=== PATIENT | male | born 1940 | race Caucasian/White ===

== ENCOUNTER 2017-11-16 07:27 | Inpatient (IN) | payer OTHER ==
[2017-11-16] MEDS: SOD CHLORIDE 0.9% 1,000 ML IV ×3 (08:45→17:27)
[2017-11-16] MEDS: LORAZEPAM 2 MG INJ IV ×3 (08:45→23:07)
[2017-11-16] MEDS: ONDANSETRON 4 MG INJ IV (08:45)
[2017-11-16 08:46] LABS: ADD MAN DIFF? NO
[2017-11-16 08:52] LABS: ABNORMAL IP MESSAGE 1; BASOPHILS % 0.1 % (0.0-2.0); HEMATOCRIT 34.2 % (42.0-52.0); HEMOGLOBIN 11.6 g/dl (14.0-18.0); LYMPHOCYTES # 0.4 10^3/ul (0.8-2.9); LYMPHOCYTES % 4.7 % (15.0-51.0); MEAN CORPUSCULAR HGB CONC 33.9 g/dl (32.0-37.0); MEAN CORPUSCULAR VOLUME 94.2 fl (82.0-101.0); MEAN PLATELET VOLUME 9.8 fl (7.4-10.4); MONOCYTE # 0.3 10^3/ul (0.3-0.9); MONOCYTES % 3.4 % (0.0-11.0); NEUTROPHIL # 7.5 10^3/ul (1.6-7.5); NEUTROPHILS % 91.6 % (39.0-77.0); PLATELET COUNT 156 10^3/UL (140-415); POSITIVE DIFF @See below; RED BLOOD COUNT 3.63 10^6/ul (4.70-6.10); RED CELL DISTRIBUTION WIDTH 14.3 % (11.5-14.5)
[2017-11-16 08:52] LABS: WHITE BLOOD COUNT 8.2 10^3/ul (4.8-10.8)
[2017-11-16 09:10] LABS: INR 0.97
[2017-11-16 09:12] LABS: ALANINE AMINOTRANSFERASE 104 IU/L (13-69); ALBUMIN/GLOBULIN RATIO 1.61; ALKALINE PHOSPHATASE 107 IU/L (42-121); ANION GAP 37 (8-16); ASPARTATE AMINO TRANSFERASE 155 IU/L (15-46); BILIRUBIN,INDIRECT 1.4 mg/dl (0-1.1); BILIRUBIN,TOTAL 1.4 mg/dl (0.2-1.3); BLOOD UREA NITROGEN 34 mg/dl (7-20); CALCIUM 9.3 mg/dl (8.4-10.2); CARBON DIOXIDE 14 mmol/L (21-31); CHLORIDE 103 mmol/L (97-110); CREATININE 1.31 mg/dl (0.61-1.24); GLUCOSE 113 mg/dl (70-220); LIPASE 158 U/L (23-300); POTASSIUM 4.5 mmol/L (3.5-5.1); SODIUM 149 mmol/L (135-144); TOTAL PROTEIN 8.1 g/dl (6.1-8.1)
[2017-11-16 09:22] LABS: TROPONIN-I 0.064 ng/ml (0.00-0.12)
[2017-11-16] MEDS: METOPROLOL (XL) 25 MG TAB PO (12:29)
[2017-11-16] MEDS ORDERED: ONDANSETRON 4 MG INJ IV ×2 (16:30→17:30)
[2017-11-16] MEDS ORDERED: ACETAMINOPHEN 325 MG TAB PO (16:30)
[2017-11-16] MEDS ORDERED: NACL 0.9% 3 ML SYG IV (17:30)
[2017-11-16] MEDS ORDERED: MAGNESIUM HYDROXIDE 30ML CUP PO (17:30)
[2017-11-16] MEDS: MULTIVITAMINS 10 ML, THIAMINE 100 MG, FOLIC ACID 1 MG in SOD CHLORIDE 0.9% 1,000 ML IVPB (22:55)
[2017-11-16] MEDS: CHLORDIAZEPOXIDE 25 MG CAP PO (22:55)
[2017-11-16] MEDS: PANTOPRAZOLE 40 MG INJ IV (22:55)
[2017-11-17 06:01] LABS: ADD MAN DIFF? NO
[2017-11-17 06:07] LABS: WHITE BLOOD COUNT 5.2 10^3/ul (4.8-10.8)
[2017-11-17 06:07] LABS: ABNORMAL IP MESSAGE 1; BASOPHILS % 0.4 % (0.0-2.0); EOSINOPHILS % 0.6 % (0.0-7.0); HEMATOCRIT 28.7 % (42.0-52.0); HEMOGLOBIN 9.7 g/dl (14.0-18.0); LYMPHOCYTES % 18.7 % (15.0-51.0); MEAN CORPUSCULAR HEMOGLOBIN 32.2 pg (29.0-33.0); MEAN CORPUSCULAR HGB CONC 33.8 g/dl (32.0-37.0); MEAN CORPUSCULAR VOLUME 95.3 fl (82.0-101.0); MEAN PLATELET VOLUME 9.9 fl (7.4-10.4); MONOCYTE # 0.4 10^3/ul (0.3-0.9); MONOCYTES % 8.1 % (0.0-11.0); NEUTROPHIL # 3.7 10^3/ul (1.6-7.5); NEUTROPHILS % 71.8 % (39.0-77.0); PLATELET COUNT 96 10^3/UL (140-415); POSITIVE DIFF @See below; RED BLOOD COUNT 3.01 10^6/ul (4.70-6.10); RED CELL DISTRIBUTION WIDTH 14.3 % (11.5-14.5)
[2017-11-17 06:32] LABS: ALANINE AMINOTRANSFERASE 74 IU/L (13-69); ALBUMIN 3.6 g/dl (3.3-4.9); ALBUMIN/GLOBULIN RATIO 1.38; ALKALINE PHOSPHATASE 76 IU/L (42-121); ANION GAP 17 (8-16); ASPARTATE AMINO TRANSFERASE 91 IU/L (15-46); BLOOD UREA NITROGEN 30 mg/dl (7-20); CALCIUM 8.8 mg/dl (8.4-10.2); CARBON DIOXIDE 21 mmol/L (21-31); CHLORIDE 110 mmol/L (97-110); CREATININE 0.89 mg/dl (0.61-1.24); GLUCOSE 73 mg/dl (70-220); MAGNESIUM 1.7 mg/dl (1.7-2.5); POTASSIUM 3.4 mmol/L (3.5-5.1); SODIUM 145 mmol/L (135-144); TOTAL PROTEIN 6.2 g/dl (6.1-8.1)
[2017-11-17] MEDS: SOD CHLORIDE 0.9% 1,000 ML IV ×3 (06:33→19:53)
[2017-11-17] MEDS: MULTIVITAMINS 10 ML, THIAMINE 100 MG, FOLIC ACID 1 MG in SOD CHLORIDE 0.9% 1,000 ML IVPB (09:00)
[2017-11-17] MEDS: CHLORDIAZEPOXIDE 25 MG CAP PO ×3 (09:00→19:46)
[2017-11-17] MEDS: PANTOPRAZOLE 40 MG INJ IV ×2 (09:00→19:46)
[2017-11-17] MEDS: POTASSIUM CHLORIDE (SR) 10 MEQ TAB PO (12:32)
[2017-11-17 12:33] LABS: CHOLESTEROL 219 mg/dl (100-200)
[2017-11-17 12:33] LABS: CHOL/HDL RATIO 2.7 RATIO; HDL CHOLESTEROL 79 mg/dl (31-75); LDL CHOLESTEROL,CALCULATED 112 mg/dl; TRIGLYCERIDES 142 mg/dl (0-149)
[2017-11-17 12:41] LABS: HEMOGLOBIN A1C 4.7 % (0-5.9)
[2017-11-18] MEDS: SOD CHLORIDE 0.9% 1,000 ML IV ×2 (05:07→19:53)
[2017-11-18 06:08] LABS: ADD MAN DIFF? NO; HAAIG REFLEX REFLEX FILED
[2017-11-18 06:13] LABS: WHITE BLOOD COUNT 4.6 10^3/ul (4.8-10.8)
[2017-11-18 06:13] LABS: ABNORMAL IP MESSAGE 1; BASOPHILS % 0.2 % (0.0-2.0); EOSINOPHILS # 0.1 10^3/ul (0.0-0.5); EOSINOPHILS % 1.7 % (0.0-7.0); HEMATOCRIT 26.8 % (42.0-52.0); HEMOGLOBIN 9.2 g/dl (14.0-18.0); LYMPHOCYTES # 1.1 10^3/ul (0.8-2.9); LYMPHOCYTES % 23.6 % (15.0-51.0); MEAN CORPUSCULAR HEMOGLOBIN 31.9 pg (29.0-33.0); MEAN CORPUSCULAR HGB CONC 34.3 g/dl (32.0-37.0); MEAN CORPUSCULAR VOLUME 93.1 fl (82.0-101.0); MEAN PLATELET VOLUME 10.4 fl (7.4-10.4); MONOCYTE # 0.3 10^3/ul (0.3-0.9); MONOCYTES % 6.6 % (0.0-11.0); NEUTROPHIL # 3.1 10^3/ul (1.6-7.5); NEUTROPHILS % 67.5 % (39.0-77.0); PLATELET COUNT 82 10^3/UL (140-415); POSITIVE DIFF @See below; RED BLOOD COUNT 2.88 10^6/ul (4.70-6.10); RED CELL DISTRIBUTION WIDTH 13.6 % (11.5-14.5)
[2017-11-18 06:46] LABS: ALANINE AMINOTRANSFERASE 62 IU/L (13-69); ALBUMIN 3.1 g/dl (3.3-4.9); ALBUMIN/GLOBULIN RATIO 1.29; ALKALINE PHOSPHATASE 68 IU/L (42-121); ANION GAP 13 (8-16); ASPARTATE AMINO TRANSFERASE 72 IU/L (15-46); BILIRUBIN,INDIRECT 1.5 mg/dl (0-1.1); BILIRUBIN,TOTAL 1.5 mg/dl (0.2-1.3); BLOOD UREA NITROGEN 21 mg/dl (7-20); CALCIUM 8.5 mg/dl (8.4-10.2); CARBON DIOXIDE 22 mmol/L (21-31); CHLORIDE 109 mmol/L (97-110); CREATININE 0.74 mg/dl (0.61-1.24); GLUCOSE 80 mg/dl (70-220); POTASSIUM 3.2 mmol/L (3.5-5.1); SODIUM 141 mmol/L (135-144); TOTAL PROTEIN 5.5 g/dl (6.1-8.1)
[2017-11-18 07:11] LABS: HEPATITIS B SURFACE ANTIGEN NEGATIVE (NEGATIVE)
[2017-11-18 07:15] LABS: MAGNESIUM 1.3 mg/dl (1.7-2.5)
[2017-11-18 07:15] LABS: PHOSPHORUS 2.3 mg/dl (2.5-4.9)
[2017-11-18 07:29] LABS: HEPATITIS B CORE ANTIBODY NEGATIVE (NEGATIVE); HEPATITIS C VIRAL ANTIBODY NEGATIVE (NEGATIVE)
[2017-11-18 08:51] LABS: AMMONIA 21 umol/l (9-30)
[2017-11-18] MEDS: PANTOPRAZOLE 40 MG INJ IV ×2 (09:33→21:16)
[2017-11-18] MEDS: CHLORDIAZEPOXIDE 25 MG CAP PO ×3 (09:33→21:16)
[2017-11-18] MEDS: MULTIVITAMINS 10 ML, THIAMINE 100 MG, FOLIC ACID 1 MG in SOD CHLORIDE 0.9% 1,000 ML IVPB (10:54)
[2017-11-18] MEDS: MAGNESIUM SULFATE 3 GM in DEXTROSE 5% 100 ML IVPB (11:47)
[2017-11-18] MEDS: POTASSIUM PHOSPHATE 15 MM in SOD CHLORIDE 0.9% 250 ML IVPB (13:36)
[2017-11-19 06:13] LABS: ADD MAN DIFF? NO
[2017-11-19 06:16] LABS: WHITE BLOOD COUNT 4.2 10^3/ul (4.8-10.8)
[2017-11-19 06:16] LABS: ABNORMAL IP MESSAGE 1; BASOPHILS % 0.2 % (0.0-2.0); EOSINOPHILS # 0.1 10^3/ul (0.0-0.5); EOSINOPHILS % 2.2 % (0.0-7.0); HEMATOCRIT 25.6 % (42.0-52.0); HEMOGLOBIN 8.8 g/dl (14.0-18.0); LYMPHOCYTES % 22.9 % (15.0-51.0); MEAN CORPUSCULAR HGB CONC 34.4 g/dl (32.0-37.0); MEAN CORPUSCULAR VOLUME 93.1 fl (82.0-101.0); MEAN PLATELET VOLUME 10.2 fl (7.4-10.4); MONOCYTE # 0.3 10^3/ul (0.3-0.9); NEUTROPHIL # 2.8 10^3/ul (1.6-7.5); NEUTROPHILS % 66.5 % (39.0-77.0); PLATELET COUNT 79 10^3/UL (140-415); POSITIVE DIFF @See below; RED BLOOD COUNT 2.75 10^6/ul (4.70-6.10); RED CELL DISTRIBUTION WIDTH 13.6 % (11.5-14.5)
[2017-11-19 06:56] LABS: PHOSPHORUS 2.3 mg/dl (2.5-4.9)
[2017-11-19 06:56] LABS: MAGNESIUM 1.6 mg/dl (1.7-2.5)
[2017-11-19 06:59] LABS: ALANINE AMINOTRANSFERASE 70 IU/L (13-69); ALBUMIN 2.8 g/dl (3.3-4.9); ALBUMIN/GLOBULIN RATIO 1.07; ALKALINE PHOSPHATASE 92 IU/L (42-121); ANION GAP 9 (8-16); ASPARTATE AMINO TRANSFERASE 72 IU/L (15-46); BILIRUBIN,INDIRECT 0.9 mg/dl (0-1.1); BILIRUBIN,TOTAL 0.9 mg/dl (0.2-1.3); BLOOD UREA NITROGEN 15 mg/dl (7-20); CALCIUM 8.5 mg/dl (8.4-10.2); CARBON DIOXIDE 22 mmol/L (21-31); CHLORIDE 112 mmol/L (97-110); CREATININE 0.78 mg/dl (0.61-1.24); GLUCOSE 98 mg/dl (70-220); SODIUM 140 mmol/L (135-144); TOTAL PROTEIN 5.4 g/dl (6.1-8.1)
[2017-11-19] MEDS: MULTIVITAMINS 10 ML, THIAMINE 100 MG, FOLIC ACID 1 MG in SOD CHLORIDE 0.9% 1,000 ML IVPB ×2 (08:54→11:57)
[2017-11-19] MEDS: CHLORDIAZEPOXIDE 25 MG CAP PO ×2 (08:55→13:46)
[2017-11-19] MEDS: PANTOPRAZOLE 40 MG INJ IV ×2 (08:55→20:52)
[2017-11-19] MEDS: SOD CHLORIDE 0.9% 1,000 ML IV (11:53)
[2017-11-19] MEDS: POTASSIUM PHOSPHATE 30 MM in SOD CHLORIDE 0.9% 250 ML IVPB (17:14)
[2017-11-19] MEDS: MAGNESIUM SULFATE 2 GM/50 ML 50 ML IVPB (20:52)
[2017-11-19] MEDS: CHLORDIAZEPOXIDE 5 MG CAP PO (20:53)
[2017-11-20] MEDS: SOD CHLORIDE 0.9% 1,000 ML IV ×3 (02:00→20:53)
[2017-11-20 06:42] LABS: ADD MAN DIFF? NO
[2017-11-20 06:43] LABS: BASOPHILS % 0.5 % (0.0-2.0); EOSINOPHILS # 0.1 10^3/ul (0.0-0.5); EOSINOPHILS % 3.1 % (0.0-7.0); HEMATOCRIT 25.2 % (42.0-52.0); HEMOGLOBIN 8.8 g/dl (14.0-18.0); LYMPHOCYTES % 26.2 % (15.0-51.0); MEAN CORPUSCULAR HEMOGLOBIN 32.4 pg (29.0-33.0); MEAN CORPUSCULAR HGB CONC 34.9 g/dl (32.0-37.0); MEAN CORPUSCULAR VOLUME 92.6 fl (82.0-101.0); MONOCYTE # 0.5 10^3/ul (0.3-0.9); NEUTROPHIL # 2.2 10^3/ul (1.6-7.5); NEUTROPHILS % 57.9 % (39.0-77.0); NUCLEATED RED BLOOD CELLS% 0.5 /100WBC (0.0-0.0); POSITIVE DIFF @See below; RED BLOOD COUNT 2.72 10^6/ul (4.70-6.10); RED CELL DISTRIBUTION WIDTH 13.8 % (11.5-14.5)
[2017-11-20 06:43] LABS: WHITE BLOOD COUNT 3.8 10^3/ul (4.8-10.8)
[2017-11-20 07:12] LABS: PHOSPHORUS 3.8 mg/dl (2.5-4.9)
[2017-11-20 07:12] LABS: MAGNESIUM 1.8 mg/dl (1.7-2.5)
[2017-11-20 07:20] LABS: ALANINE AMINOTRANSFERASE 71 IU/L (13-69); ALBUMIN 2.8 g/dl (3.3-4.9); ALBUMIN/GLOBULIN RATIO 1.07; ALKALINE PHOSPHATASE 75 IU/L (42-121); ANION GAP 12 (8-16); ASPARTATE AMINO TRANSFERASE 70 IU/L (15-46); BILIRUBIN,INDIRECT 0.6 mg/dl (0-1.1); BILIRUBIN,TOTAL 0.6 mg/dl (0.2-1.3); BLOOD UREA NITROGEN 10 mg/dl (7-20); CALCIUM 8.4 mg/dl (8.4-10.2); CARBON DIOXIDE 21 mmol/L (21-31); CHLORIDE 113 mmol/L (97-110); CREATININE 0.72 mg/dl (0.61-1.24); GLUCOSE 99 mg/dl (70-220); POTASSIUM 3.2 mmol/L (3.5-5.1); SODIUM 143 mmol/L (135-144); TOTAL PROTEIN 5.4 g/dl (6.1-8.1)
[2017-11-20] MEDS: PANTOPRAZOLE 40 MG INJ IV ×2 (08:02→20:44)
[2017-11-20] MEDS: CHLORDIAZEPOXIDE 5 MG CAP PO ×3 (08:03→20:44)
[2017-11-20] MEDS: MULTIVITAMINS 10 ML, THIAMINE 100 MG, FOLIC ACID 1 MG in SOD CHLORIDE 0.9% 1,000 ML IVPB ×2 (09:00→13:27)
[2017-11-20 10:33] LABS: MEAN PLATELET VOLUME 10.4 fl (7.4-10.4)
[2017-11-20 10:35] LABS: PLATELET COUNT 112 10^3/UL (140-415)
[2017-11-20] MEDS: DOCUSATE SODIUM 100 MG CAP PO (11:42)
[2017-11-20] MEDS: POTASSIUM CHLORIDE (SR) 20 MEQ TAB PO (12:44)
[2017-11-20 12:58] LABS: OCCULT BLOOD STOOL POSITIVE (NEGATIVE)
[2017-11-20] MEDS ORDERED: BISACODYL (EC) 5 MG TAB PO (13:00)
[2017-11-20 13:02] LABS: IRON 34 ug/dl (35-150)
[2017-11-20 13:11] LABS: % IRON SATURATION 19 % SAT (22-52); TOTAL IRON BINDING CAPACITY 175 ug/dl (241-421)
[2017-11-20] MEDS: MAGNESIUM SULFATE 2 GM/50 ML 50 ML IVPB (14:45)
[2017-11-20] MEDS: LACTULOSE 30ML CUP PO (20:44)
[2017-11-20] MEDS: POLYETHYLENE GLYCOL 17 GM PACKET PO (20:44)
[2017-11-21] MEDS: SOD CHLORIDE 0.9% 1,000 ML IV ×3 (03:31→19:23)
[2017-11-21 06:26] LABS: ADD MAN DIFF? NO
[2017-11-21 06:30] LABS: WHITE BLOOD COUNT 3.5 10^3/ul (4.8-10.8)
[2017-11-21 06:30] LABS: BASOPHILS % 0.6 % (0.0-2.0); EOSINOPHILS # 0.1 10^3/ul (0.0-0.5); EOSINOPHILS % 3.4 % (0.0-7.0); HEMATOCRIT 25.1 % (42.0-52.0); HEMOGLOBIN 8.8 g/dl (14.0-18.0); LYMPHOCYTES % 27.7 % (15.0-51.0); MEAN CORPUSCULAR HGB CONC 35.1 g/dl (32.0-37.0); MEAN PLATELET VOLUME 10.2 fl (7.4-10.4); MONOCYTE # 0.5 10^3/ul (0.3-0.9); MONOCYTES % 13.6 % (0.0-11.0); NEUTROPHIL # 1.9 10^3/ul (1.6-7.5); NEUTROPHILS % 54.4 % (39.0-77.0); PLATELET COUNT 124 10^3/UL (140-415); RED BLOOD COUNT 2.67 10^6/ul (4.70-6.10)
[2017-11-21 07:17] LABS: ALANINE AMINOTRANSFERASE 78 IU/L (13-69); ALBUMIN 2.8 g/dl (3.3-4.9); ALBUMIN/GLOBULIN RATIO 1.07; ALKALINE PHOSPHATASE 75 IU/L (42-121); ANION GAP 14 (8-16); ASPARTATE AMINO TRANSFERASE 77 IU/L (15-46); BILIRUBIN,INDIRECT 0.5 mg/dl (0-1.1); BILIRUBIN,TOTAL 0.5 mg/dl (0.2-1.3); BLOOD UREA NITROGEN 7 mg/dl (7-20); CALCIUM 8.2 mg/dl (8.4-10.2); CARBON DIOXIDE 19 mmol/L (21-31); CHLORIDE 114 mmol/L (97-110); CREATININE 0.73 mg/dl (0.61-1.24); GLUCOSE 86 mg/dl (70-220); POTASSIUM 3.7 mmol/L (3.5-5.1); SODIUM 143 mmol/L (135-144); TOTAL PROTEIN 5.4 g/dl (6.1-8.1)
[2017-11-21 07:55] LABS: PHOSPHORUS 3.2 mg/dl (2.5-4.9)
[2017-11-21 07:55] LABS: MAGNESIUM 1.8 mg/dl (1.7-2.5)
[2017-11-21] MEDS: PANTOPRAZOLE 40 MG INJ IV ×2 (08:20→22:05)
[2017-11-21] MEDS: MULTIVITAMINS 10 ML, THIAMINE 100 MG, FOLIC ACID 1 MG in SOD CHLORIDE 0.9% 1,000 ML IVPB (08:21)
[2017-11-21] MEDS: CHLORDIAZEPOXIDE 5 MG CAP PO ×3 (09:00→22:04)
[2017-11-21] MEDS: POLYETHYLENE GLYCOL 17 GM PACKET PO ×2 (09:00→22:05)
[2017-11-21] MEDS: LACTULOSE 30ML CUP PO ×2 (09:00→22:04)
[2017-11-21] MEDS: FERROUS SULFATE (EC) 325 MG TAB PO ×2 (13:37→22:04)
[2017-11-22 06:13] LABS: ADD MAN DIFF? NO
[2017-11-22 06:19] LABS: WHITE BLOOD COUNT 3.8 10^3/ul (4.8-10.8)
[2017-11-22 06:19] LABS: BASOPHILS % 0.3 % (0.0-2.0); EOSINOPHILS # 0.1 10^3/ul (0.0-0.5); EOSINOPHILS % 2.9 % (0.0-7.0); HEMATOCRIT 27.1 % (42.0-52.0); MEAN CORPUSCULAR HEMOGLOBIN 31.8 pg (29.0-33.0); MEAN CORPUSCULAR HGB CONC 33.2 g/dl (32.0-37.0); MEAN CORPUSCULAR VOLUME 95.8 fl (82.0-101.0); MEAN PLATELET VOLUME 9.9 fl (7.4-10.4); MONOCYTE # 0.7 10^3/ul (0.3-0.9); MONOCYTES % 18.8 % (0.0-11.0); NEUTROPHILS % 51.7 % (39.0-77.0); PLATELET COUNT 182 10^3/UL (140-415); RED BLOOD COUNT 2.83 10^6/ul (4.70-6.10)
[2017-11-22] MEDS: SOD CHLORIDE 0.9% 1,000 ML IV ×3 (06:33→19:53)
[2017-11-22 06:46] LABS: ANION GAP 14 (8-16); BLOOD UREA NITROGEN 8 mg/dl (7-20); CALCIUM 8.3 mg/dl (8.4-10.2); CARBON DIOXIDE 22 mmol/L (21-31); CHLORIDE 112 mmol/L (97-110); GLUCOSE 85 mg/dl (70-220); POTASSIUM 3.9 mmol/L (3.5-5.1); SODIUM 144 mmol/L (135-144)
[2017-11-22] MEDS: CHLORDIAZEPOXIDE 5 MG CAP PO ×3 (08:16→20:50)
[2017-11-22] MEDS: PANTOPRAZOLE 40 MG INJ IV ×2 (08:16→20:50)
[2017-11-22] MEDS: FERROUS SULFATE (EC) 325 MG TAB PO ×2 (08:16→20:50)
[2017-11-22] MEDS: LACTULOSE 30ML CUP PO ×2 (08:16→20:50)
[2017-11-22] MEDS: POLYETHYLENE GLYCOL 17 GM PACKET PO ×2 (08:16→20:50)
[2017-11-22] MEDS: MULTIVITAMINS 10 ML, THIAMINE 100 MG, FOLIC ACID 1 MG in SOD CHLORIDE 0.9% 1,000 ML IVPB (08:17)
[2017-11-23 05:56] LABS: BASOPHILS % 0.2 % (0.0-2.0); EOSINOPHILS # 0.1 10^3/ul (0.0-0.5); EOSINOPHILS % 3.3 % (0.0-7.0); HEMATOCRIT 24.1 % (42.0-52.0); HEMOGLOBIN 8.2 g/dl (14.0-18.0); LYMPHOCYTES # 0.8 10^3/ul (0.8-2.9); LYMPHOCYTES % 19.4 % (15.0-51.0); MEAN CORPUSCULAR HEMOGLOBIN 31.9 pg (29.0-33.0); MEAN CORPUSCULAR VOLUME 93.8 fl (82.0-101.0); MEAN PLATELET VOLUME 9.6 fl (7.4-10.4); MONOCYTES % 22.5 % (0.0-11.0); NEUTROPHIL # 2.3 10^3/ul (1.6-7.5); NEUTROPHILS % 54.4 % (39.0-77.0); PLATELET COUNT 187 10^3/UL (140-415); RED BLOOD COUNT 2.57 10^6/ul (4.70-6.10); RED CELL DISTRIBUTION WIDTH 14.3 % (11.5-14.5)
[2017-11-23 05:56] LABS: WHITE BLOOD COUNT 4.3 10^3/ul (4.8-10.8)
[2017-11-23 05:57] LABS: ADD MAN DIFF? NO
[2017-11-23 06:15] LABS: ANION GAP 12 (8-16); BLOOD UREA NITROGEN 6 mg/dl (7-20); CARBON DIOXIDE 22 mmol/L (21-31); CHLORIDE 112 mmol/L (97-110); GLUCOSE 88 mg/dl (70-220); SODIUM 143 mmol/L (135-144)
[2017-11-23] MEDS: PANTOPRAZOLE 40 MG INJ IV ×2 (08:46→21:11)
[2017-11-23] MEDS: CHLORDIAZEPOXIDE 5 MG CAP PO ×3 (08:46→21:11)
[2017-11-23] MEDS: LACTULOSE 30ML CUP PO ×2 (08:46→21:11)
[2017-11-23] MEDS: FERROUS SULFATE (EC) 325 MG TAB PO ×2 (08:46→21:11)
[2017-11-23] MEDS: POLYETHYLENE GLYCOL 17 GM PACKET PO ×2 (08:49→21:11)
[2017-11-23] MEDS: MULTIVITAMINS 10 ML, THIAMINE 100 MG, FOLIC ACID 1 MG in SOD CHLORIDE 0.9% 1,000 ML IVPB (08:50)
[2017-11-23] MEDS: SOD CHLORIDE 0.9% 1,000 ML IV ×2 (09:13→18:16)
[2017-11-23] MEDS: POTASSIUM CHLORIDE 100 ML IVPB ×2 (11:19→14:39)
[2017-11-23 13:29] LABS: MAGNESIUM 1.2 mg/dl (1.7-2.5)
[2017-11-23] MEDS: MAGNESIUM SULFATE 4 GM/100 ML 100 ML IVPB (18:15)
[2017-11-23] MEDS: ZOLPIDEM 5 MG TAB PO ×2 (22:35→22:37)
[2017-11-24 06:09] LABS: ADD MAN DIFF? NO
[2017-11-24 06:12] LABS: WHITE BLOOD COUNT 3.6 10^3/ul (4.8-10.8)
[2017-11-24 06:12] LABS: BASOPHILS % 0.6 % (0.0-2.0); EOSINOPHILS # 0.1 10^3/ul (0.0-0.5); EOSINOPHILS % 3.6 % (0.0-7.0); HEMATOCRIT 24.4 % (42.0-52.0); HEMOGLOBIN 8.4 g/dl (14.0-18.0); LYMPHOCYTES # 0.8 10^3/ul (0.8-2.9); LYMPHOCYTES % 22.3 % (15.0-51.0); MEAN CORPUSCULAR HEMOGLOBIN 32.4 pg (29.0-33.0); MEAN CORPUSCULAR HGB CONC 34.4 g/dl (32.0-37.0); MEAN CORPUSCULAR VOLUME 94.2 fl (82.0-101.0); MEAN PLATELET VOLUME 9.6 fl (7.4-10.4); MONOCYTES % 26.5 % (0.0-11.0); NEUTROPHIL # 1.7 10^3/ul (1.6-7.5); NEUTROPHILS % 46.7 % (39.0-77.0); PLATELET COUNT 214 10^3/UL (140-415); RED BLOOD COUNT 2.59 10^6/ul (4.70-6.10); RED CELL DISTRIBUTION WIDTH 14.1 % (11.5-14.5)
[2017-11-24 06:40] LABS: ALANINE AMINOTRANSFERASE 64 IU/L (13-69); ALBUMIN 2.7 g/dl (3.3-4.9); ALKALINE PHOSPHATASE 60 IU/L (42-121); ASPARTATE AMINO TRANSFERASE 46 IU/L (15-46); BILIRUBIN,INDIRECT 0.3 mg/dl (0-1.1); BILIRUBIN,TOTAL 0.3 mg/dl (0.2-1.3)
[2017-11-24 06:50] LABS: ANION GAP 13 (8-16); BLOOD UREA NITROGEN 5 mg/dl (7-20); CARBON DIOXIDE 22 mmol/L (21-31); CHLORIDE 112 mmol/L (97-110); CREATININE 0.77 mg/dl (0.61-1.24); GLUCOSE 86 mg/dl (70-220); POTASSIUM 3.3 mmol/L (3.5-5.1); SODIUM 144 mmol/L (135-144)
[2017-11-24 06:54] LABS: MAGNESIUM 1.9 mg/dl (1.7-2.5)
[2017-11-24] MEDS: CHLORDIAZEPOXIDE 5 MG CAP PO ×3 (08:40→20:59)
[2017-11-24] MEDS: FERROUS SULFATE (EC) 325 MG TAB PO ×2 (08:40→20:58)
[2017-11-24] MEDS: PANTOPRAZOLE 40 MG INJ IV ×2 (08:40→20:58)
[2017-11-24] MEDS: LACTULOSE 30ML CUP PO ×2 (08:40→20:58)
[2017-11-24] MEDS: MULTIVITAMINS 10 ML, THIAMINE 100 MG, FOLIC ACID 1 MG in SOD CHLORIDE 0.9% 1,000 ML IVPB (08:41)
[2017-11-24] MEDS: POLYETHYLENE GLYCOL 17 GM PACKET PO ×2 (08:41→20:59)
[2017-11-24] MEDS: SOD CHLORIDE 0.9% 1,000 ML IV ×2 (11:53→18:16)
[2017-11-24] MEDS: POTASSIUM CHLORIDE (SR) 10 MEQ TAB PO (13:49)
[2017-11-25] MEDS: ZOLPIDEM 5 MG TAB PO ×2 (00:21→22:18)
[2017-11-25 08:03] LABS: ADD MAN DIFF? NO
[2017-11-25 08:07] LABS: BASOPHILS % 0.3 % (0.0-2.0); EOSINOPHILS # 0.2 10^3/ul (0.0-0.5); EOSINOPHILS % 4.3 % (0.0-7.0); HEMATOCRIT 24.3 % (42.0-52.0); LYMPHOCYTES # 0.9 10^3/ul (0.8-2.9); LYMPHOCYTES % 23.6 % (15.0-51.0); MEAN CORPUSCULAR HEMOGLOBIN 31.5 pg (29.0-33.0); MEAN CORPUSCULAR HGB CONC 32.9 g/dl (32.0-37.0); MEAN CORPUSCULAR VOLUME 95.7 fl (82.0-101.0); MEAN PLATELET VOLUME 9.8 fl (7.4-10.4); MONOCYTE # 1.1 10^3/ul (0.3-0.9); NEUTROPHIL # 1.7 10^3/ul (1.6-7.5); NEUTROPHILS % 44.1 % (39.0-77.0); PLATELET COUNT 246 10^3/UL (140-415); RED BLOOD COUNT 2.54 10^6/ul (4.70-6.10); RED CELL DISTRIBUTION WIDTH 14.4 % (11.5-14.5)
[2017-11-25 08:07] LABS: WHITE BLOOD COUNT 3.9 10^3/ul (4.8-10.8)
[2017-11-25 08:21] LABS: MONOCYTES % 27.4 % (0.0-11.0)
[2017-11-25 08:31] LABS: ANION GAP 9 (8-16); BLOOD UREA NITROGEN 3 mg/dl (7-20); CALCIUM 8.1 mg/dl (8.4-10.2); CARBON DIOXIDE 26 mmol/L (21-31); CHLORIDE 111 mmol/L (97-110); CREATININE 0.85 mg/dl (0.61-1.24); GLUCOSE 83 mg/dl (70-220); POTASSIUM 3.4 mmol/L (3.5-5.1); SODIUM 143 mmol/L (135-144)
[2017-11-25] MEDS: FERROUS SULFATE (EC) 325 MG TAB PO ×2 (08:43→22:18)
[2017-11-25] MEDS: LACTULOSE 30ML CUP PO ×2 (08:43→22:18)
[2017-11-25] MEDS: PANTOPRAZOLE 40 MG INJ IV ×2 (08:44→22:18)
[2017-11-25] MEDS: POLYETHYLENE GLYCOL 17 GM PACKET PO ×2 (08:44→22:21)
[2017-11-25] MEDS: MULTIVITAMINS 10 ML, THIAMINE 100 MG, FOLIC ACID 1 MG in SOD CHLORIDE 0.9% 1,000 ML IVPB (08:44)
[2017-11-25] MEDS: ACETAMINOPHEN 325 MG TAB PO (13:40)
[2017-11-25] MEDS: SOD CHLORIDE 0.9% 1,000 ML IV ×2 (14:33→17:03)
[2017-11-26] MEDS: SOD CHLORIDE 0.9% 1,000 ML IV ×2 (03:53→17:48)
[2017-11-26 06:24] LABS: ADD MAN DIFF? NO
[2017-11-26 06:29] LABS: WHITE BLOOD COUNT 4.7 10^3/ul (4.8-10.8)
[2017-11-26 06:29] LABS: BASOPHILS % 0.4 % (0.0-2.0); EOSINOPHILS # 0.2 10^3/ul (0.0-0.5); EOSINOPHILS % 3.2 % (0.0-7.0); HEMATOCRIT 26.8 % (42.0-52.0); LYMPHOCYTES # 1.2 10^3/ul (0.8-2.9); LYMPHOCYTES % 25.7 % (15.0-51.0); MEAN CORPUSCULAR HEMOGLOBIN 31.5 pg (29.0-33.0); MEAN CORPUSCULAR HGB CONC 33.6 g/dl (32.0-37.0); MEAN CORPUSCULAR VOLUME 93.7 fl (82.0-101.0); MEAN PLATELET VOLUME 9.5 fl (7.4-10.4); MONOCYTE # 0.9 10^3/ul (0.3-0.9); MONOCYTES % 19.3 % (0.0-11.0); NEUTROPHIL # 2.4 10^3/ul (1.6-7.5); NEUTROPHILS % 51.2 % (39.0-77.0); PLATELET COUNT 275 10^3/UL (140-415); RED BLOOD COUNT 2.86 10^6/ul (4.70-6.10); RED CELL DISTRIBUTION WIDTH 14.2 % (11.5-14.5)
[2017-11-26 07:16] LABS: ANION GAP 14 (8-16); BLOOD UREA NITROGEN 7 mg/dl (7-20); CALCIUM 8.4 mg/dl (8.4-10.2); CARBON DIOXIDE 22 mmol/L (21-31); CHLORIDE 113 mmol/L (97-110); GLUCOSE 84 mg/dl (70-220); POTASSIUM 3.8 mmol/L (3.5-5.1); SODIUM 145 mmol/L (135-144)
[2017-11-26] MEDS: FERROUS SULFATE (EC) 325 MG TAB PO ×2 (08:37→20:25)
[2017-11-26] MEDS: PANTOPRAZOLE 40 MG INJ IV ×2 (08:37→20:25)
[2017-11-26] MEDS: LACTULOSE 30ML CUP PO ×2 (08:38→20:24)
[2017-11-26] MEDS: POLYETHYLENE GLYCOL 17 GM PACKET PO ×2 (08:38→20:24)
[2017-11-26] MEDS: MULTIVITAMINS 10 ML, THIAMINE 100 MG, FOLIC ACID 1 MG in SOD CHLORIDE 0.9% 1,000 ML IVPB (08:38)
[2017-11-26] MEDS: ACETAMINOPHEN 325 MG TAB PO (23:18)
[2017-11-27 06:08] LABS: ADD MAN DIFF? NO
[2017-11-27 06:15] LABS: BASOPHILS % 0.5 % (0.0-2.0); EOSINOPHILS # 0.2 10^3/ul (0.0-0.5); EOSINOPHILS % 3.6 % (0.0-7.0); HEMATOCRIT 24.9 % (42.0-52.0); HEMOGLOBIN 8.3 g/dl (14.0-18.0); LYMPHOCYTES # 1.3 10^3/ul (0.8-2.9); MEAN CORPUSCULAR HEMOGLOBIN 31.4 pg (29.0-33.0); MEAN CORPUSCULAR HGB CONC 33.3 g/dl (32.0-37.0); MEAN CORPUSCULAR VOLUME 94.3 fl (82.0-101.0); MEAN PLATELET VOLUME 9.7 fl (7.4-10.4); MONOCYTE # 0.6 10^3/ul (0.3-0.9); MONOCYTES % 15.4 % (0.0-11.0); NEUTROPHILS % 48.3 % (39.0-77.0); PLATELET COUNT 260 10^3/UL (140-415); RED BLOOD COUNT 2.64 10^6/ul (4.70-6.10); RED CELL DISTRIBUTION WIDTH 14.4 % (11.5-14.5)
[2017-11-27 06:15] LABS: WHITE BLOOD COUNT 4.2 10^3/ul (4.8-10.8)
[2017-11-27] MEDS: SOD CHLORIDE 0.9% 1,000 ML IV ×2 (06:22→12:11)
[2017-11-27 06:36] LABS: ALANINE AMINOTRANSFERASE 55 IU/L (13-69); ALBUMIN 2.8 g/dl (3.3-4.9); ALBUMIN/GLOBULIN RATIO 1.12; ALKALINE PHOSPHATASE 59 IU/L (42-121); ANION GAP 11 (8-16); ASPARTATE AMINO TRANSFERASE 40 IU/L (15-46); BILIRUBIN,INDIRECT 0.2 mg/dl (0-1.1); BILIRUBIN,TOTAL 0.2 mg/dl (0.2-1.3); BLOOD UREA NITROGEN 6 mg/dl (7-20); CALCIUM 8.1 mg/dl (8.4-10.2); CARBON DIOXIDE 25 mmol/L (21-31); CHLORIDE 111 mmol/L (97-110); CREATININE 0.75 mg/dl (0.61-1.24); GLUCOSE 77 mg/dl (70-220); MAGNESIUM 1.3 mg/dl (1.7-2.5); PHOSPHORUS 3.5 mg/dl (2.5-4.9); POTASSIUM 3.2 mmol/L (3.5-5.1); SODIUM 144 mmol/L (135-144); TOTAL PROTEIN 5.3 g/dl (6.1-8.1)
[2017-11-27] MEDS: BISACODYL (EC) 5 MG TAB PO (08:35)
[2017-11-27] MEDS: FERROUS SULFATE (EC) 325 MG TAB PO ×2 (08:35→21:38)
[2017-11-27] MEDS: MULTIVITAMINS 10 ML, THIAMINE 100 MG, FOLIC ACID 1 MG in SOD CHLORIDE 0.9% 1,000 ML IVPB (08:36)
[2017-11-27] MEDS: LACTULOSE 30ML CUP PO ×2 (08:36→21:38)
[2017-11-27] MEDS: PANTOPRAZOLE 40 MG INJ IV ×2 (08:36→21:38)
[2017-11-27] MEDS: POLYETHYLENE GLYCOL 17 GM PACKET PO ×2 (08:36→21:38)
[2017-11-27] MEDS: POLYETHYLENE GLYCOL 3350 119 GM POWDER PO (18:47)
[2017-11-27] MEDS: POTASSIUM CHLORIDE (SR) 20 MEQ TAB PO (19:47)
[2017-11-27] MEDS: MAGNESIUM CITRATE 300 ML BTL PO (19:49)
[2017-11-28] MEDS: SOD CHLORIDE 0.9% 1,000 ML IV ×3 (02:58→22:46)
[2017-11-28] MEDS: POLYETHYLENE GLYCOL 3350 119 GM POWDER PO (05:54)
[2017-11-28 05:56] LABS: ADD MAN DIFF? NO
[2017-11-28 06:14] LABS: BASOPHILS % 0.9 % (0.0-2.0); EOSINOPHILS # 0.1 10^3/ul (0.0-0.5); EOSINOPHILS % 2.7 % (0.0-7.0); HEMOGLOBIN 8.7 g/dl (14.0-18.0); LYMPHOCYTES # 1.3 10^3/ul (0.8-2.9); LYMPHOCYTES % 29.5 % (15.0-51.0); MEAN CORPUSCULAR HEMOGLOBIN 32.3 pg (29.0-33.0); MEAN CORPUSCULAR HGB CONC 33.5 g/dl (32.0-37.0); MEAN CORPUSCULAR VOLUME 96.7 fl (82.0-101.0); MEAN PLATELET VOLUME 9.8 fl (7.4-10.4); MONOCYTE # 0.6 10^3/ul (0.3-0.9); NEUTROPHIL # 2.3 10^3/ul (1.6-7.5); NEUTROPHILS % 52.4 % (39.0-77.0); PLATELET COUNT 296 10^3/UL (140-415); RED BLOOD COUNT 2.69 10^6/ul (4.70-6.10); RED CELL DISTRIBUTION WIDTH 14.5 % (11.5-14.5)
[2017-11-28 06:14] LABS: WHITE BLOOD COUNT 4.4 10^3/ul (4.8-10.8)
[2017-11-28 06:25] LABS: INR 1.01; PROTIME 13.4 Sec (11.9-14.9)
[2017-11-28 06:37] LABS: ALANINE AMINOTRANSFERASE 52 IU/L (13-69); ALBUMIN 2.6 g/dl (3.3-4.9); ALBUMIN/GLOBULIN RATIO 0.96; ALKALINE PHOSPHATASE 57 IU/L (42-121); ANION GAP 12 (8-16); ASPARTATE AMINO TRANSFERASE 38 IU/L (15-46); BILIRUBIN,INDIRECT 0.3 mg/dl (0-1.1); BILIRUBIN,TOTAL 0.3 mg/dl (0.2-1.3); BLOOD UREA NITROGEN 4 mg/dl (7-20); CALCIUM 8.4 mg/dl (8.4-10.2); CARBON DIOXIDE 24 mmol/L (21-31); CHLORIDE 115 mmol/L (97-110); CREATININE 0.78 mg/dl (0.61-1.24); GLUCOSE 79 mg/dl (70-220); MAGNESIUM 1.5 mg/dl (1.7-2.5); PHOSPHORUS 3.3 mg/dl (2.5-4.9); POTASSIUM 3.5 mmol/L (3.5-5.1); SODIUM 147 mmol/L (135-144); TOTAL PROTEIN 5.3 g/dl (6.1-8.1)
[2017-11-28] MEDS: BISACODYL (EC) 5 MG TAB PO (08:02)
[2017-11-28] MEDS: FERROUS SULFATE (EC) 325 MG TAB PO ×2 (08:02→22:45)
[2017-11-28] MEDS: POLYETHYLENE GLYCOL 17 GM PACKET PO ×2 (08:02→22:45)
[2017-11-28] MEDS: LACTULOSE 30ML CUP PO ×2 (08:02→22:45)
[2017-11-28] MEDS: MULTIVITAMINS 10 ML, THIAMINE 100 MG, FOLIC ACID 1 MG in SOD CHLORIDE 0.9% 1,000 ML IVPB (10:28)
[2017-11-28] MEDS: PANTOPRAZOLE 40 MG INJ IV ×2 (10:28→22:44)
[2017-11-28] MEDS: MAGNESIUM SULFATE 2 GM/50 ML 50 ML IVPB (12:28)
[2017-11-28] MEDS ORDERED: MIDAZOLAM 1 MG/ML 2 ML INJ (14:25)
[2017-11-28] MEDS ORDERED: LIDOCAINE 2% (SDV) 5 ML INJ (14:25)
[2017-11-28] MEDS ORDERED: PROPOFOL 40 ML (14:25)
[2017-11-28] MEDS ORDERED: ONDANSETRON 4 MG INJ IV (15:00)
[2017-11-28] MEDS: hydrALAzine 20 MG INJ IV ×2 (15:43→17:52)
[2017-11-28] MEDS: ACETAMINOPHEN 325 MG TAB PO (17:02)
[2017-11-29] MEDS: PANTOPRAZOLE 40 MG INJ IV (09:02)
[2017-11-29] MEDS: POLYETHYLENE GLYCOL 17 GM PACKET PO (09:02)
[2017-11-29] MEDS: LACTULOSE 30ML CUP PO (09:02)
[2017-11-29] MEDS: FERROUS SULFATE (EC) 325 MG TAB PO (09:02)
[2017-11-29] MEDS: MULTIVITAMINS 10 ML, THIAMINE 100 MG, FOLIC ACID 1 MG in SOD CHLORIDE 0.9% 1,000 ML IVPB (10:03)
[2017-11-29] MEDS: AMLODIPINE 2.5 MG TAB PO (10:14)
[2017-11-29 10:20] LABS: ADD MAN DIFF? NO
[2017-11-29 10:26] LABS: BASOPHILS % 0.4 % (0.0-2.0); EOSINOPHILS # 0.1 10^3/ul (0.0-0.5); EOSINOPHILS % 1.3 % (0.0-7.0); HEMATOCRIT 28.6 % (42.0-52.0); HEMOGLOBIN 9.5 g/dl (14.0-18.0); LYMPHOCYTES # 1.1 10^3/ul (0.8-2.9); LYMPHOCYTES % 15.2 % (15.0-51.0); MEAN CORPUSCULAR HEMOGLOBIN 31.8 pg (29.0-33.0); MEAN CORPUSCULAR HGB CONC 33.2 g/dl (32.0-37.0); MEAN CORPUSCULAR VOLUME 95.7 fl (82.0-101.0); MEAN PLATELET VOLUME 9.5 fl (7.4-10.4); MONOCYTE # 0.6 10^3/ul (0.3-0.9); MONOCYTES % 8.2 % (0.0-11.0); NEUTROPHIL # 5.2 10^3/ul (1.6-7.5); NEUTROPHILS % 74.6 % (39.0-77.0); PLATELET COUNT 335 10^3/UL (140-415); RED BLOOD COUNT 2.99 10^6/ul (4.70-6.10); RED CELL DISTRIBUTION WIDTH 14.6 % (11.5-14.5)
[2017-11-29 10:48] LABS: ALANINE AMINOTRANSFERASE 49 IU/L (13-69); ALBUMIN 3.4 g/dl (3.3-4.9); ALBUMIN/GLOBULIN RATIO 1.25; ALKALINE PHOSPHATASE 66 IU/L (42-121); ANION GAP 12 (8-16); ASPARTATE AMINO TRANSFERASE 34 IU/L (15-46); BILIRUBIN,INDIRECT 0.3 mg/dl (0-1.1); BILIRUBIN,TOTAL 0.3 mg/dl (0.2-1.3); BLOOD UREA NITROGEN 5 mg/dl (7-20); CALCIUM 8.8 mg/dl (8.4-10.2); CARBON DIOXIDE 22 mmol/L (21-31); CHLORIDE 114 mmol/L (97-110); CREATININE 0.77 mg/dl (0.61-1.24); GLUCOSE 93 mg/dl (70-220); MAGNESIUM 1.7 mg/dl (1.7-2.5); PHOSPHORUS 3.2 mg/dl (2.5-4.9); POTASSIUM 3.3 mmol/L (3.5-5.1); SODIUM 145 mmol/L (135-144); TOTAL PROTEIN 6.1 g/dl (6.1-8.1)
[2017-11-29] MEDS: POTASSIUM CHLORIDE (SR) 10 MEQ TAB PO (11:37)
[2017-11-29] MEDS ORDERED: ZOLPIDEM 5 MG TAB PO (21:00)
== END 2017-11-29 18:25 | disposition home or self-care (01) | DRG 896 ==
LOC: MS2 16:37 → E/R 07:27 → MS2 11-17 19:57
PROC: 0W3P8ZZ Control Bleeding in Gastrointestinal Tract, Via Natural or Artificial Opening Endoscopic (ICD-10-PCS; principal; 2017-11-28 14:05)
PROC: 0DBK8ZX Excision of Ascending Colon, Via Natural or Artificial Opening Endoscopic, Diagnostic (ICD-10-PCS; 2017-11-28 14:05)
PROC: 0DBN8ZX Excision of Sigmoid Colon, Via Natural or Artificial Opening Endoscopic, Diagnostic (ICD-10-PCS; 2017-11-28 14:05)
PROC: 0DBP8ZX Excision of Rectum, Via Natural or Artificial Opening Endoscopic, Diagnostic (ICD-10-PCS; 2017-11-28 14:05)
DX: F10.231 Alcohol dependence with withdrawal delirium (principal); G92 Toxic encephalopathy; K31.811 Angiodysplasia of stomach and duodenum with bleeding; K92.0 Hematemesis; D62 Acute posthemorrhagic anemia; K92.1 Melena; F10.229 Alcohol dependence with intoxication, unspecified; K70.9 Alcoholic liver disease, unspecified; G31.2 Degeneration of nervous system due to alcohol; K29.20 Alcoholic gastritis without bleeding; D64.9 Anemia, unspecified; K57.90 Diverticulosis of intestine, part unspecified, without perforation or abscess without bleeding; F17.200 Nicotine dependence, unspecified, uncomplicated; E86.0 Dehydration; Y90.1 Blood alcohol level of 20-39 mg/100 ml; K63.5 Polyp of colon; K64.8 Other hemorrhoids
CPT/HCPCS: 36415; 71045; 76705; 80048; 80053; 80061; 80076; 80306; 82140; 82270; 82728; 83036; 83540; 83690; 83735; 84100; 84484; 85025; 85610; 86704; 86709; 86803; 87340; 88305; 93005; 96361; 96374; 96375; 96376; 97110; 97116; 97161; 97165; 97530; 97535; 99291-25

== ENCOUNTER 2018-08-02 15:54 | Emergency (ER) | payer OTHER ==
[2018-08-02 17:08] LABS: ADD MAN DIFF? NO
[2018-08-02 17:12] LABS: WHITE BLOOD COUNT 5.5 10^3/ul (4.8-10.8)
[2018-08-02 17:12] LABS: BASOPHIL # 0.1 10^3/ul (0.0-0.1); BASOPHILS % 0.9 % (0.0-2.0); EOSINOPHILS # 0.1 10^3/ul (0.0-0.5); EOSINOPHILS % 2.4 % (0.0-7.0); HEMATOCRIT 34.3 % (42.0-52.0); HEMOGLOBIN 11.5 g/dl (14.0-18.0); LYMPHOCYTES # 1.4 10^3/ul (0.8-2.9); MEAN CORPUSCULAR HEMOGLOBIN 32.4 pg (29.0-33.0); MEAN CORPUSCULAR HGB CONC 33.5 g/dl (32.0-37.0); MEAN CORPUSCULAR VOLUME 96.6 fl (82.0-101.0); MEAN PLATELET VOLUME 8.8 fl (7.4-10.4); MONOCYTE # 0.6 10^3/ul (0.3-0.9); MONOCYTES % 10.8 % (0.0-11.0); NEUTROPHIL # 3.3 10^3/ul (1.6-7.5); NEUTROPHILS % 60.5 % (39.0-77.0); PLATELET COUNT 124 10^3/UL (140-415); RED BLOOD COUNT 3.55 10^6/ul (4.70-6.10); RED CELL DISTRIBUTION WIDTH 13.6 % (11.5-14.5)
[2018-08-02 17:47] LABS: ANION GAP 15 (5-13); BLOOD UREA NITROGEN 21 mg/dl (7-20); CALCIUM 9.5 mg/dl (8.4-10.2); CARBON DIOXIDE 25 mmol/L (21-31); CHLORIDE 106 mmol/L (97-110); CREATININE 0.78 mg/dl (0.61-1.24); GLUCOSE 93 mg/dl (70-220); MAGNESIUM 1.6 mg/dl (1.7-2.5); POTASSIUM 3.6 mmol/L (3.5-5.1); SODIUM 146 mmol/L (135-144)
[2018-08-02] MEDS: MAGNESIUM OXIDE 400 MG TAB PO (18:47)
[2018-08-03] MEDS: DIPHENHYDRAMINE 25 MG CAP PO (09:29)
[2018-08-03] MEDS: OXYCODONE/ACETAMINOPHEN (5/325) TAB PO (09:29)
== END 2018-08-04 10:19 | disposition home or self-care (01) ==
LOC: E/R 08-04 10:19
DX: F10.10 Alcohol abuse, uncomplicated (principal); R40.2132 Coma scale, eyes open, to sound, at arrival to emergency department; R40.2362 Coma scale, best motor response, obeys commands, at arrival to emergency department; R40.2242 Coma scale, best verbal response, confused conversation, at arrival to emergency department; E83.42 Hypomagnesemia; D64.9 Anemia, unspecified; D69.6 Thrombocytopenia, unspecified; I10 Essential (primary) hypertension; J45.909 Unspecified asthma, uncomplicated; F17.210 Nicotine dependence, cigarettes, uncomplicated; R51 Headache
CPT/HCPCS: 36415; 70450; 80048; 83735; 85025; 99284-25